=== PATIENT | female | born 1980 | race Caucasian/White ===

== ENCOUNTER 2016-12-08 21:38 | Emergency (ER) | payer OTHER ==
[2016-12-08 21:45] VITALS: PULSE 72; RESP 16; TEMP 98.4; O2SAT 96
--- NOTE | 2016-12-08 22:08 | EDPHY ---
H & P Time Seen by Provider: 12/08/16 21:49 HPI/ROS: CHIEF COMPLAINT: Right elbow pain HISTORY OF PRESENT ILLNESS: 35-year-old female was seen at [facility] yesterday post mechanical fall post FOOSH with fracture of the distal radius and ulna, reduced and splinted and returned back to [place] today. She is complaining of right elbow pain. She denies wrist pain, denies paresthesia. She only wants to have the elbow x-rayed. PHYSICAL EXAM (Prior to examination, patient consented to physical exam, hands were washed and my usual and customary physical exam procedures followed) 1) GENERAL: Well-developed, well-nourished, alert and oriented. Appears to be in no acute distress. 2) HEAD: Normocephalic 3) HEENT: Pupils equal, round, reactive to light bilaterally. 4) LUNGS: Breathing comfortably. 5) MUSCULOSKELETAL: Right upper extremity sugar-tong splint in place. Splint is taken down and patient notes relief in her point tenderness over her elbow with removal of the splint. Compartments are soft. She is neurovascularly intact with brisk pulses. Smoking Status: Never smoked Constitutional: Initial Vital Signs Temperature (C) 36.9 C 12/08/16 21:43 Heart Rate 72 12/08/16 21:43 Respiratory Rate 16 12/08/16 21:43 Blood Pressure 123/65 H 12/08/16 21:43 O2 Sat (%) 96 12/08/16 21:43 O2 Delivery Mode Room Air Allergies/Adverse Reactions: No Known Allergies Allergy (Unverified 12/08/16 21:42) Home Medications: Medication Instructions Recorded Ibuprofen 12/08/16 MDM/Departure - MDM Imaging Results: Imaging Impressions Elbow X-Ray 12/08/16 22:06 Impression: No definite elbow fracture. Procedures: Procedure: Splint A sugar-tong Ortho Glass splint was applied by ER master certified rv technician. After application of the splint I returned and re-examined the patient. The splint was adequately immobilizing the joint and distal to the splint the patient's circulation and sensation were intact. Patient shows no signs of compartment syndrome. Was given orthopedic precautions. ED Course/Re-evaluation: Re-evaluation with serial exams. Also seen and examined by Dr Oreilly. Doubt compartment syndrome. Discussed the imaging results. Patient's splint has been removed rebuilt she notes improvement in her symptoms with the new splint. Usual and customary orthopedic precautions instructions provided. - Depart Disposition: Home, Routine, Self-Care Clinical Impression: Colles' fracture Qualifiers: Encounter type: initial encounter Fracture type: closed Laterality: right Qualified Code(s): S52.531A - Colles' fracture of right radius, initial encounter for closed fracture Condition: Good Instructions: Wrist Fracture in Adults (ED) Additional Instructions: Return to the ER immediately if you experience discoloration, have worsening pain, numbness, tingling, or any other symptoms that concern you. If you received x-rays in the emergency department today, be advised, that ligamentous , tendon, muscular, and other non-bony injury cannot be fully ruled out. Try to keep your affected extremity elevated above the level of your chest, and keep cold packs on the affected area, for the next 48 hours. Referrals: Jewel Gilmore MD [Medical Doctor] - 2-3 days, call for appt. (Dr. Jewel Gilmore is an orthopedic surgeon)
[2016-12-08 23:28] VITALS: BP 132/76
== END 2016-12-08 23:28 | disposition home or self-care (01) ==
DX: S52.531A Colles' fracture of right radius, initial encounter for closed fracture (principal); W18.39XA Other fall on same level, initial encounter

== ENCOUNTER → 2016-12-15 | Outpatient (CLI) | payer OTHER | LOC: FLAB 10:07 | PROVIDERS: ATTEND Family Medicine | DX: S52.514A Nondisplaced fracture of right radial styloid process, initial encounter for closed fracture (principal) ==

== ENCOUNTER → 2017-01-02 | Outpatient (CLI) | payer OTHER | LOC: FIMAGING 16:57 | DX: S52.501D Unspecified fracture of the lower end of right radius, subsequent encounter for closed fracture with routine healing (principal) ==

== ENCOUNTER → 2017-01-19 | Outpatient (CLI) | payer OTHER | LOC: FIMAGING 09:44 | PROVIDERS: ATTEND Family Medicine | DX: S52.91XD Unspecified fracture of right forearm, subsequent encounter for closed fracture with routine healing (principal) ==

== ENCOUNTER → 2017-02-02 | Outpatient (CLI) | payer OTHER | LOC: FIMAGING 16:50 | PROVIDERS: ATTEND Family Medicine Sports Medicine | DX: S52.324A Nondisplaced transverse fracture of shaft of right radius, initial encounter for closed fracture (principal) ==

== ENCOUNTER → 2017-03-18 | Outpatient (CLI) | payer OTHER | END | disposition home or self-care (01) | LOC: FIMAGING 17:02 | DX: S52.501A Unspecified fracture of the lower end of right radius, initial encounter for closed fracture (principal); X58.XXXA Exposure to other specified factors, initial encounter ==

== ENCOUNTER → 2017-12-31 | Outpatient (CLI) | payer OTHER | LOC: FIMAGING 14:33 | PROVIDERS: ATTEND Obstetrics & Gynecology | DX: Z36.0 Encounter for antenatal screening for chromosomal anomalies (principal); O09.511 Supervision of elderly primigravida, first trimester; Z3A.12 12 weeks gestation of pregnancy; Z82.79 Family history of other congenital malformations, deformations and chromosomal abnormalities ==